=== PATIENT | male | born 1980 | race Caucasian/White ===

== ENCOUNTER → 2017-09-14 | Outpatient (CLI) | payer BC ==
--- NOTE | 2017-09-16 11:07 | Diagnostic Imaging Report ---
PROCEDURE:CERVICAL 3 VIEWS TECHNIQUE:AP, lateral and open-mouth odontoid views cervical spine INDICATION:Neck pain COMPARISON:None. FINDINGS: Cervical spine evaluated from the skull base through the cervicothoracic junction. Vertebral body interspace height is normal. Normal alignment. Normal facets and uncovertebral joints. Normal regional skeleton. CONCLUSION: Normal cervical spine series. Dictated by: Jos Cabello M.D. on 09/16/2017 at 11:07 Electronically approved by: Jos Cabello M.D. on 09/16/2017 at 11:07
== END ==
LOC: RAD 18:30
PROVIDERS: ATTEND Family Medicine
DX: M54.2 Cervicalgia (principal)
CPT/HCPCS: 72040

== ENCOUNTER 2024-08-21 18:20 | Emergency (ER) | payer BC, OTHER ==
[~2024-08-21] VITALS: Ht 182.9 cm; Wt 92.3 kg
[2024-08-21] MEDS ORDERED: CEPHALEXIN500 MG PO (18:44)
[2024-08-21 18:51] VITALS: PULSE 96; RESP 16; TEMP 99.9; O2SAT 96
== END 2024-08-21 18:51 | disposition home or self-care (01) ==
LOC: FSED 18:24
DX: T81.30XA Disruption of wound, unspecified, initial encounter (principal); B99.8 Other infectious disease
CPT/HCPCS: 99283